=== PATIENT | female | born 1955 | race Caucasian/White ===

== ENCOUNTER 2020-10-12 13:22 | Outpatient (CLI) | payer MEDICARE | END 2020-10-12 23:59 | disposition home or self-care (01) | LOC: CFH 13:22 | PROVIDERS: ATTEND Internal Medicine Cardiovascular Disease | DX: Z12.2 Encounter for screening for malignant neoplasm of respiratory organs (principal); I08.8 Other rheumatic multiple valve diseases; I25.10 Atherosclerotic heart disease of native coronary artery without angina pectoris; R06.02 Shortness of breath; I48.0 Paroxysmal atrial fibrillation; I27.0 Primary pulmonary hypertension; F17.211 Nicotine dependence, cigarettes, in remission; R91.1 Solitary pulmonary nodule; J84.10 Pulmonary fibrosis, unspecified | CPT/HCPCS: 71271; 93306 ==